=== PATIENT | male | born 1970 | race Caucasian/White ===

== ENCOUNTER 2018-09-07 09:15 | Emergency (ER) | payer OTHER ==
[2018-09-07] MEDS ORDERED: HYDROcodone/ACETAMIN 5-325 MG* 1 TAB PO ONE (10:53)
--- NOTE | 2018-09-07 11:21 | UC ---
Back Pain HPI - HPI Summary HPI Summary: pt states he had been having an occasional "twing" in his R low back/butt area on and off. , he bent or squatted and got severe pain in that area. he has tried heat, ice and motrin 800mg every 8 hours with no relief. if he sits, the pain radiates into his R leg. he admits to carrying a wallet in his R back pocket. no hx of injury. - History of Current Complaint Chief Complaint: UCBackPain Stated Complaint: BACK INJURY Time Seen by Provider: 09/07/18 11:13 Hx Obtained From: Patient, Family/Sales And Customer Relations Rep Pain Intensity: 10 Aggravating Factor(s): Bending, Other - sitting Alleviating Factor(s): Other - being flat Associated Signs And Symptoms: Positive: Other - no saddle anesthesia. Negative : Fever, Weakness, Numbness, Tingling, Abdominal Pain, Flank Pain, Bladder Incontinence, Bowel Incontinence - Risk Factors Cauda Equina Risk Factors: Negative Epidural Abscess Risk Factors: Negative - Allergies/Home Medications Allergies/Adverse Reactions: Allergies Allergy/AdvReac Type Severity Reaction Status Date / Time No Known Allergies Allergy Verified 09/07/18 10:51 Home Medications: Home Medications Atorvastatin* [Lipitor 10 MG*] 10 mg PO DAILY 09/07/18 [History Confirmed ] Ibuprofen 800 mg PO Q4HR PRN 09/07/18 [History Confirmed 09/07/18] PMH/Surg Hx/FS Hx/Imm Hx - Additional Past Medical History Additional PMH: ITP Endocrine History: Dyslipidemia - Surgical History Surgical History: None - Family History Known Family History: Positive: Non-Contributory - Social History Occupation: Employed Full-time Lives: With Family Alcohol Use: Occasionally Substance Use Type: None Smoking Status (MU): Never Smoked Tobacco Review of Systems All Other Systems Reviewed And Are Negative: Yes Constitutional: Negative: Fever Skin: Negative: Rash Respiratory: Negative: Shortness Of Breath Cardiovascular: Negative: Chest Pain Gastrointestinal: Negative: Abdominal Pain Motor: Positive: Decreased ROM - low back Neurological: Negative: Weakness Physical Exam Triage Information Reviewed: Yes Appearance: Pain Distress Vital Signs: Initial Vital Signs Temp 97.3 F 09/07/18 10:44 Pulse 119 09/07/18 10:44 Resp 16 09/07/18 10:44 BP 145/77 09/07/18 10:44 Pulse Ox 97 09/07/18 10:44 Vital Signs Reviewed: Yes Eyes: Positive: Conjunctiva Clear ENT: Positive: Normal ENT inspection Neck: Positive: Supple, Nontender, No Lymphadenopathy, Other: - c-spine is non tender Respiratory: Positive: Lungs clear, Normal breath sounds Cardiovascular: Positive: No Murmur, Tachycardia Abdomen Description: Positive: Nontender, No Organomegaly, Soft. Negative: Distended, Guarding, Pulsatile Mass Bowel Sounds: Positive: Present Musculoskeletal: Positive: Other: - Back: no deformity and spine is non tender. low back rom limited by pain. R sciatic notch is very tender and shoots the pain /numbness into his RLE. + straight leg raise on R. 2+ reflexes, sensation and 5/ 5 strength intact x4. no saddle anesthesia. Slow but steady gait. Neurological: Positive: Alert Psychological: Positive: Normal Response To Family, Age Appropriate Behavior Skin Exam: Normal Skin: Negative: Rashes Re-Evaluation - Re-Evaluation First Eval Change: Improved - VS improving at time of discharge. BP and HR are pain related. Back Pain Course/Dx - Course Course Of Treatment: I spoke to the pt about proper dosing of Motrin and potential harm from taking to much. I ahve also advised he not place his wallet in a back pocket. - Differential Dx/Diagnosis Differential Diagnosis/HQI/PQRI: Other - no concern for infectin, fx or cauda equina. exam is c/w sciatica. will tx with mm relaxor, steroid and PT. Provider Diagnosis: Sciatica Discharge - Sign-Out/Discharge Documenting (check all that apply): Patient Departure All imaging exams completed and their final reports reviewed: No Studies - Discharge Plan Condition: Stable Disposition: HOME Prescriptions: Cyclobenzaprine TAB* [Flexeril 10 MG TAB*] 10 mg PO TID #10 tab methylPREDNISolone [Medrol Dosepak 4 MG*] 0 mg PO .SEE MINDI INSTRUCTION #1 tab Patient Education Materials: Sciatica (ED) Forms: *Work Release Referrals: Jennifer Bhagat MD [Primary Care Provider] - 3 Days - Billing Disposition and Condition Condition: STABLE Disposition: Home
[2018-09-07] MEDS ORDERED: Cyclobenzaprine TAB* 10 MG PO ONE (11:30)
[2018-09-07 11:45] VITALS: BP 124/80
== END 2018-09-07 11:45 | disposition home or self-care (01) ==
LOC: UCCORT 09:15
DX: M54.31 Sciatica, right side (principal); E78.5 Hyperlipidemia, unspecified
CPT/HCPCS: 99212; A9270-GY; G0463